=== PATIENT | female | born 1990 | race Caucasian/White ===

== ENCOUNTER 2025-02-23 17:46 | Emergency (ER) | payer SELFPAY ==
[2025-02-23 18:05] VITALS: BP 180/100; PULSE 72; RESP 20; TEMP 36.9; O2SAT 95
[2025-02-23 19:01] LABS: Glucose Urine UA Negative (Normal); Nitrate Urine Negative (Negative); Specific Gravity, Urine 1.021 (1.005-1.030)
[2025-02-23 20:00] LABS: Hematocrit 38.9 % (36-47); Hemoglobin 12.70 g/dL (11.27-16.99); Mean Corpuscular HGB Conc 32.6 g/dL (30-55); Mean Corpuscular Hemoglobin 27.1 pg (27-33); Mean Corpuscular Volume 82.9 fl (85-98); Nucleated Red Blood Cells % 0 %; Platelet Count 223 10^3/cmm (157-399); Red Blood Count 4.69 10^6/uL (3.85-5.65); White Blood Count 7.80 10^3/uL (3.29-11.43)
[2025-02-23 20:24] LABS: Lactic Sepsis W/Reflex 1.1 mmol/L (0.5-2.2)
[2025-02-23 20:25] LABS: Alanine Aminotransferase 16 U/L (0-33); Albumin Level 4.2 g/dL (3.5-5.2); Alkaline Phosphatase 64 U/L (35-105); Anion Gap 14.8 (5-19); Aspartate Amino Transferase 14 U/L (0-32); Blood Urea Nitrogen 14 mg/dL (6-20); Calcium 8.8 mg/dL (8.5-10.5); Carbon Dioxide 25 mmol/L (22-29); Chloride 103 mmol/L (98-107); Globulin 3.2 g/dL (1.3-4.6); Glucose 90 mg/dL (65-115); Lipase 26 U/L (13-60); Osmolality Calculated 288 mOsm/kg (285-295); Potassium 3.8 mmol/L (3.5-5.1); Sodium 139 mmol/L (136-145); Total Protein 7.4 g/dL (6.6-8.7)
[2025-02-23 20:35] LABS: HCG, Serum Qual Negative (Negative)
--- NOTE | 2025-02-23 21:17 | CTR_ITS ---
PROCEDURE INFORMATION: Exam: CT Abdomen And Pelvis Without Contrast Exam date and time: 02/23/2025 9:34 PM Age: 34 years old Clinical indication: Abdominal pain; Additional info: Upper abdominal pain, luq/flank pain, HX gastric sleeve TECHNIQUE: Imaging protocol: Computed tomography of the abdomen and pelvis without contrast. Radiation optimization: All CT scans at this facility use at least one of these dose optimization techniques: automated exposure control; mA and/or kV adjustment per patient size (includes targeted exams where dose is matched to clinical indication); or iterative reconstruction. COMPARISON: No relevant prior studies available. RADIATION DOSE METRICS: Total DLP (mGy-cm): 1221.12 FINDINGS: Liver: Normal. No mass. Gallbladder and biliary ducts: The gallbladder is surgically absent. No intra or extrahepatic bile duct dilatation is noted. Pancreas: Normal. No ductal dilation. Spleen: The spleen is borderline enlarged measuring 13.7 cm craniocaudally. Adrenal glands: Normal. No mass. Kidneys and ureters: Small proteinaceous/hemorrhagic cyst versus nonobstructive punctate stone in the left interpolar kidney. The kidneys are otherwise normal. Stomach and bowel: Postoperative changes from gastric sleeve are noted. No acute complication. Appendix: The appendix is normal. Intraperitoneal space: Unremarkable. No free air. No significant fluid collection. Vasculature: Unremarkable. No abdominal aortic aneurysm. Lymph nodes: Prominent subcentimeter short axis mesenteric lymph nodes are nonspecific. Urinary bladder: The urinary bladder is nondistended and poorly characterized. Pseudo wall thickening is present. Reproductive: A tampon is seen in the vaginal canal. Bones/joints: Unremarkable. No acute fracture. Soft tissues: Unremarkable. CT/CT kidney stone [id number] IMPRESSION: 1. No findings of obstructive uropathy. 2. Borderline splenomegaly. Correlate with patient history/physical exam. 3. Nonspecific subcentimeter short axis mesenteric lymph nodes, likely reactive. Correlate for recent infectious/inflammatory or viral etiology. 4. Otherwise, no acute process in the abdomen or pelvis to explain the patient's symptoms. COMMENTS: Consistent with the [employer]'s Incidental Findings Committee white paper (J Am Mary Radiol 2018): Any incidental renal lesion less than 1 cm or classified as too small to characterize, or any incidental cystic renal lesion characterized as simple-appearing, is likely benign. No follow-up imaging is recommended for these lesions per consensus recommendations based on imaging criteria.
--- NOTE | 2025-02-23 21:17 | ED_ITS ---
HPI - Abdominal Pain 2 General: Chief Complaint: Abdominal Pain Stated Complaint: abd pain, n/v/d Time Seen by Provider: 02/23/25 21:01 Source: patient Mode of arrival: ambulatory Limitations: no limitations History of Present Illness: Patient is a 34-year-old female presents to ED today for medical evaluation. Patient states earlier today she was seated at a desk when she began developing acute onset left upper abdominal pain. She states it went from a 0 to an 8 immediately. She feels like pain radiated into her back and up into her chest and shoulder and into her head. Patient states she treated with ibuprofen and at time of arrival states her pain is significantly better. She is now having burning to her mid abdomen. Patient states she has not been vomiting. Normal bowel movements. She does chronically have pain with urination that she does not describe as dysuria. She does report recent urine analysis through a walk- in clinic which grew E. coli and states she is currently on Macrobid for this. She is not currently complaining of flank pain. No fevers. Previous abdominal surgeries include a cholecystectomy and gastric sleeve. MD elicited complaint: abdominal pain Onset (ago): hour(s) Pain Consistency: other (improved L sided abdominal pain) Location: Periumbilical and LUQ Severity: mild (3/10 currently; reporting it was much worse earlier) Radiation: none Migration to: no migration Exacerbating factors: nothing Relieving factors: nothing Associated Symptoms: Denies change in bowel habits, chills, GI cramping, diarrhea, fever(s), hematochezia, hematuria, melena and vomiting Related Data Allergies Allergy/AdvReac Type Severity Reaction Status Date / Time escitalopram (From Lexapro) Allergy Unknown Verified 02/23/25 18:04 Review of Systems 2 Const: Denies: fever(s), chills, body aches, fatigue or malaise Card: Denies: chest pain Resp: Denies: dyspnea GI: Reports: abdominal pain; Denies: vomiting, diarrhea, GI cramping, change in bowel habits, hematochezia or melena : Denies: flank pain, difficulty voiding, hematuria or pelvic pain Musc: Denies: neck pain, extremity pain, extremity swelling or joint swelling Skin/Breast: Denies: rash Neuro: Denies: headache(s), numbness in extremities, weakness in extremities, sensory changes or dizziness Physical Exam 2 Const: COMMON NORMALS: no acute distress, patient oriented x3, no limitations, alert and well nourished GENERAL APPEARANCE: cooperative NUTRITIONAL APPEARANCE: obese ORIENTATION/CONSCIOUSNESS: Yes awake, Yes oriented to person, Yes oriented to place and Yes oriented to time Eye: COMMON NORMALS: no scleral icterus Chest: COMMONS NORMALS: normal inspection of the chest and normal palpation of entire chest wall Resp: COMMON NORMALS: normal respiratory effort and clear to auscultation bilaterally AUSCULTATION: clear to auscultation bilaterally Cardio: COMMON NORMALS: regular rate and regular rhythm RATE: regular rate RHYTHM: regular rhythm GI: COMMON NORMALS: Normal to inspection, nondistended, normoactive bowel sounds present, Soft to palpation and no masses INSPECTION: Yes normal to inspection AUSCULTATION: Yes normoactive bowel sounds PALPATION: Yes Soft to palpation, Yes Tenderness to palpation present (GI) (tenderness throughout upper abdomen and periumbilical), No Guarding due to palpation present (GI) and No Rigid due to palpation : COMMON NORMALS: Yes no CVA tenderness BLADDER/KIDNEY EXAM: Yes no CVA tenderness Back/Pelvis: COMMON NORMALS: no CVA tenderness, thoracic and lumbar spine normal to inspection and no thoracic nor lumbar tenderness Extremity: GENERAL: Yes normal exam except as noted Neuro: COMMON NORMALS: patient oriented x3, moves all extremities, no focal motor deficits, no sensory deficits noted and gait normal S ENSORIUM/ORIENTATION: Yes alert, Yes oriented to person, Yes oriented to place and Yes oriented to time Skin: COMMON NORMALS: no rashes or lesions noted GENERAL SKIN EXAM: no rashes or lesions noted Course 2 Vital Signs: Vital signs: Vital Signs Temperature 98.5 F 02/23/25 18:05 Pulse Rate 66 02/23/25 22:50 Respiratory Rate 20 H 02/23/25 18:05 Blood Pressure 162/103 02/23/25 22:50 Pulse Oximetry 96 02/23/25 22:50 Oxygen Delivery Me thod Room Air 02/23/25 22:30 MDM - Abdominal Pain Medical Decision Making Patient clinically appears no acute distress. Vital signs are stable apart from hypertension. Blood work showing a normal white count. Chemistry panel is unremarkable. She has a normal lactic. CRP is scantly elevated at 5.3. Her lipase is normal. is negative. UA showing 2+ blood although patient is currently on her menstrual cycle. Given her history, possibility for urolithiasis was considered thus CT imaging was obtained. No stone was identified. She was found to have borderline splenomegaly-unlikely causing symptoms today. She does have nonspecific mesenteric lymph nodes that could be reactive. Otherwise no acute process in the abdomen or pelvis was identified. Will have case management set patient up with a primary care provider for ER follow-up. She was given instructions for signs and symptoms that should prompt a return emergency evaluation. Differential Diagnosis Likely abdominal pain, calculus of kidney, constipation, diverticulitis, gastroenteritis and pancreatitis Medical Records I reviewed the patient's medical records. Lab Data I reviewed the patient's lab results. 02/23/25 19:49 02/23/25 19:49 Labs/Radiology: Radiology Impressions Abdomen/Pelvis CT 02/23/25 21:17 IMPRESSION: 1. No findings of obstructive uropathy. 2. Borderline splenomegaly. Correlate with patient history/physical exam. 3. Nonspecific subcentimeter short axis mesenteric lymph nodes, likely reactive. Correlate for recent infectious/inflammatory or viral etiology. 4. Otherwise, no acute process in the abdomen or pelvis to explain the patient's symptoms. COMMENTS: Consistent with the [employer]'s Incidental Findings Committee white paper (J Am Mary Radiol 2018): Any incidental renal lesion less than 1 cm or classified as too small to characterize, or any incidental cystic renal lesion characterized as simple-appearing, is likely benign. No follow-up imaging is recommended for these lesions per consensus recommendations based on imaging criteria. Laboratory Results WBC 7.80 10^3/uL (3.29-11.43) 02/23/25 19:49 RBC 4.69 10^6/uL (3.85-5.65) 02/23/25 19:49 Hgb 12.70 g/dL (11.27-16.99) 02/23/25 19:49 Hct 38.9 % (36-47) 02/23/25 19:49 MCV 82.9 fl (85-98) L 02/23/25 19:49 MCH 27.1 pg (27-33) 02/23/25 19:49 MCHC 32.6 g/dL (30-55) 02/23/25 19:49 RDW 13.5 % (12.1-15.1) 02/23/25 19:49 Plt Count 223 10^3/cmm (157-399) 02/23/25 19:49 MPV 9.4 fL (7.4-10.4) 02/23/25 19:49 Neut % (Auto) 54.7 % 02/23/25 19:49 Lymph % (Auto) 33.3 % 02/23/25 19:49 Johnson % (Auto) 6.2 % 02/23/25 19:49 Eos % (Auto) 4.4 % 02/23/25 19:49 Baso % (Auto) 0.8 % 02/23/25 19:49 Neut # (Auto) 4.27 10^3/uL (1.8-7.7) 02/23/25 19:49 Lymph # (Auto) 2.6 10^3/uL (0.8-4.8) 02/23/25 19:49 Johnson # (Auto) 0.5 10^3/uL (0.2-0.9) 02/23/25 19:49 Eos # (Auto) 0.3 10^3/uL (0.0-0.8) 02/23/25 19:49 Baso # (Auto) 0.1 10^3/uL (0.0-0.1) 02/23/25 19:49 Nucleated RBC % (auto) 0 % 02/23/25 19:49 Nucleated RBCs # 0.0 /100WBC 02/23/25 19:49 Sodium 139 mmol/L (136-145) 02/23/25 19:49 Potassium 3.8 mmol/L (3.5-5.1) 02/23/25 19:49 Chloride 103 mmol/L (98-107) 02/23/25 19:49 Carbon Dioxide 25 mmol/L (22-29) 02/23/25 19:49 Anion Gap 14.8 (5-19) 02/23/25 19:49 BUN 14 mg/dL (6-20) 02/23/25 19:49 Creatinine 0.6 mg/dL (0.5-0.9) 02/23/25 19:49 GFR Calculation 115.1 mL/min (90-130) 02/23/25 19:49 Glucose 90 mg/dL (65-115) 02/23/25 19:49 Calculated Osmolality 288 mOsm/kg (285-295) 02/23/25 19:49 Lactic Acid 1.1 mmol/L (0.5-2.2) 02/23/25 19:49 Calcium 8.8 mg/dL (8.5-10.5) 02/23/25 19:49 Total Bilirubin 0.3 mg/dL (0.15-1.2) 02/23/25 19:49 AST 14 U/L (0-32) 02/23/25 19:49 ALT 16 U/L (0-33) 02/23/25 19:49 Alkaline Phosphatase 64 U/L (35-105) 02/23/25 19: C-Reactive Protein 5.3 mg/L (0.0-4.9) H 02/23/25 19:49 Total Protein 7.4 g/dL (6.6-8.7) 02/23/25 19: Albumin 4.2 g/dL (3.5-5.2) 02/23/25 19: Globulin 3.2 g/dL (1.3-4.6) 02/23/25 19: Lipase 26 U/L (13-60) 02/23/25 19:49 HCG, Qual Negative (Negative) 02/23/25 19: Urine Color Yellow (Yellow) 02/23/25 18: Urine Appearance Clear (CLEAR) 02/23/25 18: Urine pH 5.5 (5-7) 02/23/25 18: Ur Specific [place] 1.021 (1.005-1.030) 02/23/25 18: Urine Protein Negative (Negative) 02/23/25 18:49 Urine Glucose (UA) Negative (Normal) 02/23/25 18: Urine Ketones Negative (Negative) 02/23/25 18: Urine Blood 2+ (Negative) A 02/23/25 18:49 Urine Nitrate Negative (Negative) 02/23/25 18:49 Urine Bilirubin Negative (Negative) 02/23/25 18: Urine Urobilinogen 1.0 mg/dL (Negative) 02/23/25 18:49 Ur Leukocyte Esterase Negative (Negative) 02/23/25 18:49 Urine RBC 0-2 /hpf (0-2) 02/23/25 18:49 Urine WBC 0-5 /hpf (0-5) 02/23/25 18:49 Ur Squamous Epith Cells 0-5 /hpf (0-5) 02/23/25 18:49 Amorphous Sediment Not Reportable 02/23/25 18:49 Urine Bacteria None seen /hpf (NONE) 02/23/25 18:49 Hyaline Casts 0-4 /lpf H 02/23/25 18:49 All radiology interpretation(s) finalized by discharge Discharge Plan Discharge Patient Disposition: Home Clinical Impression: Abdominal pain Condition: Stable Discharge Orders: Discharge ED (Routine); Ordered 02/23/25 Ordered By: Myranda Villeda Patient Instructions: Abdominal Pain (ED), Patient Portal & Raul Instructions Activity Restrictions/Additional Instructions: As we discussed, blood work your overall was unremarkable. Your urinalysis did have a small amount of blood but this most likely was contaminant from your menstrual cycle. CT imaging showing no obvious acute findings. We did discuss some incidental findings including a borderline enlarged spleen as well as some mildly inflamed lymph nodes. I will place a case management referral to get you set up with primary care provider for further evaluation of your symptoms. As we discussed I would like you to return to the emergency department for onset of severe abdominal pain, repetitive episodes of vomiting, fevers, generally feeling worse or unwell, or any other concerns you may have. Hope you begin to feel better soon. Print Language: Citizen Of [place] Coding Level of Care Code ED Curing Press Maintainer for Alexys Chavarria
[2025-02-23 21:19] VITALS: BP 185/115; PULSE 65; O2SAT 98
[2025-02-23] MEDS: lidocaine 2% viscous 15 ML, aluminum-mag hydrox-simethicon 30 ML, sucralfate oral liq 1 GM PO (21:27)
[2025-02-23 21:30] VITALS: BP 182/110; PULSE 69; O2SAT 99
[2025-02-23 22:00] VITALS: BP 149/89; PULSE 65; O2SAT 98
[2025-02-23 22:30] VITALS: BP 152/89; PULSE 65; O2SAT 97
[2025-02-23 22:50] VITALS: BP 162/103; PULSE 66; O2SAT 96
== END 2025-02-23 22:58 | disposition home or self-care (01) ==
PROVIDERS: Emergency Medicine; Emergency Provider Physician Assistant
DX: R10.12 Left upper quadrant pain (principal)
CPT/HCPCS: 36415; 74176; 80053; 81001; 83605; 83690; 84703; 85025; 86140; 99284; J9999